=== PATIENT | male | born 1995 | race Caucasian/White ===

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

== ENCOUNTER 2019-12-12 17:42 | Emergency (ER) | payer MEDICAID ==
[~2019-12-12] VITALS: Ht 188 cm; Wt 145.4 kg
[~2019-12-12 17:42] MED LIST: SERT50TA12 PO
[2019-12-12 17:45] VITALS: BP 175/89
== END 2019-12-12 19:30 | disposition left against medical advice (07) ==
LOC: EMS 17:44
DX: F31.9 Bipolar disorder, unspecified (principal); F12.90 Cannabis use, unspecified, uncomplicated